=== PATIENT | female | born 1995 | race African-American/Black ===

== ENCOUNTER 2017-05-03 07:44 | Emergency (ER) | payer SELFPAY | END 2017-05-03 08:58 | disposition left against medical advice (07) | LOC: ER 08:38 | DX: N39.9 Disorder of urinary system, unspecified (principal); Z53.21 Procedure and treatment not carried out due to patient leaving prior to being seen by health care provider ==

== ENCOUNTER 2017-05-03 17:29 | Emergency (ER) | payer SELFPAY ==
[~2017-05-03] VITALS: Ht 182.9 cm; Wt 91.0 kg
[2017-05-03 21:30] VITALS: BP 128/72
== END 2017-05-03 22:50 | disposition home or self-care (01) ==
LOC: ER 17:29
DX: N75.1 Abscess of Bartholin's gland (principal)
CPT/HCPCS: 81025; 99283; Z7610

== ENCOUNTER 2019-01-20 23:05 | Emergency (ER) | payer MEDICAID ==
[~2019-01-20] VITALS: Ht 180.3 cm; Wt 97.3 kg
[2019-01-21] VITALS: BP 136/84
== END 2019-01-21 06:38 | disposition left against medical advice (07) ==
LOC: ER 23:05
DX: R11.0 Nausea (principal); Z53.21 Procedure and treatment not carried out due to patient leaving prior to being seen by health care provider

== ENCOUNTER 2019-01-21 22:37 | Emergency (ER) | payer MEDICAID | END 2019-01-21 22:57 | disposition left against medical advice (07) | LOC: ER 22:37 | DX: R10.9 Unspecified abdominal pain (principal); Z53.21 Procedure and treatment not carried out due to patient leaving prior to being seen by health care provider ==

== ENCOUNTER 2025-09-18 07:57 | Emergency (ER) | payer OTHER, MEDICAID ==
[~2025-09-18] VITALS: Ht 180.3 cm; Wt 111.0 kg
[2025-09-18 08:07] VITALS: TEMP 36.7; O2SAT 100
[2025-09-18 08:57] VITALS: TEMP 98
[2025-09-18] MEDS: ACETAMINOPHEN 500MG TABLET PO ONE (08:57)
[2025-09-18] MEDS ORDERED: IBUP-1455 MT (09:30)
[2025-09-18 09:51] VITALS: BP 139/91; PULSE 69; RESP 16; O2SAT 100
== END 2025-09-18 09:52 | disposition home or self-care (01) ==
LOC: ER 08:39
DX: M79.645 Pain in left finger(s) (principal); V89.2XXA Person injured in unspecified motor-vehicle accident, traffic, initial encounter; Y92.410 Unspecified street and highway as the place of occurrence of the external cause; Y93.89 Activity, other specified; Y99.8 Other external cause status
CPT/HCPCS: 73140; 99283